=== PATIENT | male | born 1980 | race Caucasian/White ===

== ENCOUNTER 2019-01-02 22:55 | Emergency (ER) | payer SELFPAY ==
[~2019-01-02] VITALS: Ht 182.9 cm; Wt 81.6 kg
[2019-01-02] MEDS ORDERED: TETANUS/DIPHTHERIA TOX ADULT 0.5 ML SYR ONE (23:38)
[2019-01-02] MEDS ORDERED: CLINDAMYCIN PHOS 600 MG/ 4 ML VIAL ONE (23:38)
[2019-01-02] MEDS ORDERED: TETANUS/DIPHTHERIA TOX ADULT 0.5 ML SYR IM ONE (23:45)
[2019-01-02] MEDS ORDERED: CLINDAMYCIN PHOS 600 MG/ 4 ML VIAL IM ONE (23:45)
== END 2019-01-03 00:33 | disposition home or self-care (01) ==
LOC: FSED 22:55
DX: R21 Rash and other nonspecific skin eruption (principal); L03.116 Cellulitis of left lower limb; S80.862A Insect bite (nonvenomous), left lower leg, initial encounter
CPT/HCPCS: 90471; 90714; 99283

== ENCOUNTER 2019-01-04 22:22 | Inpatient (IN) | payer SELFPAY ==
[~2019-01-04] VITALS: Ht 181.6 cm; Wt 78.5 kg
--- OUTSIDE RECORDS SUMMARY | 2019-01-04 22:24 | XMS REPORT | Clinical Summary ---
Author Author [facility] Organization [facility] Address Unknown Phone Unavailable Care Team Providers Care Lamp Decorator Name Role Phone Rhonda Gaston MD PCP Allergies No Known Allergies Medications No known medications Active Problems Problem Noted Date Abscess of hand 01/07/2016 Abscess of right hand 01/04/2016 Cellulitis and abscess of hand 01/04/2016 IV drug abuse 01/04/2016 Tobacco dependence 01/04/2016 Social History Date Tobacco Use Types Packs/Day Years Used Current Every Day Smoker Cigarettes 0.5 10 Smokeless Tobacco: Current User Tobacco Cessation: Ready to Quit: No; Counseling Given: Yes Alcohol Use Drinks/Week oz/Week Comments No Sex Assigned at Date Recorded Not on file Industry Job Start Date Occupation Not on file Not on file Not on file Travel End Travel History Travel Start No recent travel history available. Last Filed Vital Signs Not on file Plan of Treatment Health Maintenance Due Date Last Done Comments INFLUENZA VACCINE 02/14/2019 Results Not on fileafter 01/03/2018 Advance Directives Patient has advance care planning documents on file. For more information, elliot man contact: Khurram Bansal [address] [place] [address]
--- OUTSIDE RECORDS SUMMARY | 2019-01-04 22:24 | XMS REPORT ---
Author Author [facility] Address Unknown Phone Unavailable Care Team Providers Care Ramp Agent Name Role Phone Unavailable Unavailable Problems This patient has no known problems. Allergies, Adverse Reactions, Alerts This patient has no known allergies or adverse reactions. Medications This patient has no known medications. Encounters Start Date/Time End Date/Time Encounter Type Admission Type Attending [facility] Facility Care Department Encounter ID 2016-04-14 00:00:00 2017-01-31 00:00:00 Outpatient [facility] [id number]
[2019-01-04] MEDS ORDERED: MORPHINE SULFATE INJ 4 MG/ML INJ 1ML IV STA (22:34)
[2019-01-04] MEDS ORDERED: VANCOMYCIN 1GM/NS 250 ML 250 ML IV ONE (22:45)
[2019-01-04] MEDS ORDERED: ONDANSETRON HCL INJ 2MG/ML 2ML 2 MG/ML VIAL IV PRN (23:00)
[2019-01-04] MEDS ORDERED: VANCOMYCIN 1GM/NS 250 ML 250 ML IV SCH (23:00)
--- OUTSIDE RECORDS SUMMARY | 2019-01-04 23:19 | XMS REPORT | Clinical Summary ---
Author Author [facility] Organization [facility] Address Unknown Phone Unavailable Care Team Providers Care Water Carter Name Role Phone Rhonda Gaston MD PCP [...] more information, elliot man contact: Khurram Bansal [address] [place] [address]
--- NOTE | 2019-01-04 23:30 | NUR ---
called [facility] for transport
[2019-01-05] VITALS (9 sets, daily range): BP systolic 114–140; BP diastolic 72–93
--- NOTE | 2019-01-05 01:00 | NUR ---
RECEIVED REPORT FROM [facility] NURSE. PATIENT ARRIVED VIA STRETCHER. PATIENT'S GIRLFRIEND ACCOMPANIED PATIENT. CALL LIGHT WITHIN REACH. PATIENT IN BED.
[2019-01-05] MEDS: HYDROMORPHONE 2MG/ML 2 MG/ML ML IV PRN ×5 (01:34→21:25)
[2019-01-05] MEDS ORDERED: SODIUM CHLORIDE 0.9% 250ML 250 ML ONE (02:28)
[2019-01-05] MEDS ORDERED: MORPHINE SULFATE INJ 4 MG/ML INJ 1ML IV PRN (03:00)
--- NOTE | 2019-01-05 06:56 | NUR ---
Gave report to oncoming nurse. Patient in bed. Call light within reach.
[2019-01-05 07:17] LABS: BASOPHILS % 0.2 % (0.0-1.0); EOSINOPHILS # (AUTO) 0.3 (0.0-0.4); EOSINOPHILS % 2.5 % (0.0-6.0); HEMATOCRIT 34.8 % (38.2-49.6); HEMOGLOBIN 11.1 g/dL (14.0-18.0); LYMPHOCYTES # (AUTO) 0.7 (1.0-3.2); LYMPHOCYTES % 5.5 % (18.0-39.1); MEAN CORPUSCULAR HEMOGLOBIN 29.1 pg (28-32); MEAN CORPUSCULAR HGB CONC 31.9 g/dL (31-35); MEAN CORPUSCULAR VOLUME 91.3 fL (81-99); MONOCYTES % 7.5 % (4.4-11.3); NEUTROPHILS # (AUTO) 11.3 (2.1-6.9); NEUTROPHILS % 83.7 % (38.7-80.0); PLATELET COUNT 227 x10e3/uL (140-360); RED BLOOD COUNT 3.81 x10e6/uL (4.3-5.7); RED CELL DISTRIBUTION WIDTH 13.8 % (11.7-14.4)
[2019-01-05 07:38] LABS: ANION GAP 12.8 mmol/L (8-16); BLOOD UREA NITROGEN 11 mg/dL (7-26); BUN/CREATININE RATIO 13 (6-25); CALCIUM 8.9 mg/dL (8.4-10.2); CARBON DIOXIDE 27 mmol/L (22-29); CHLORIDE 100 mmol/L (98-107); CREATININE, SERUM 0.82 mg/dL (0.72-1.25); EST GLOMERULAR FILTRATION RATE > 60 ML/MIN (60-); GLUCOSE 127 mg/dL (74-118); POTASSIUM 3.8 mmol/L (3.5-5.1); SODIUM 136 mmol/L (136-145)
[2019-01-05] MEDS ORDERED: ACETAMINOPHEN 325 MG TAB PO PRN (08:00)
--- NOTE | 2019-01-05 08:30 | NUR ---
Pt received resting in bed. Alert and oriented x4 with wound/scab to left knee, and left leg is swollen, red, and warm to touch. Oriented to staff and surroundings. Encouraged to press call ferro if help needed. Pt verbalized understanding of teaching. Will monitor
[2019-01-05] MEDS ORDERED: ONDANSETRON HCL 4 MG ORAL DISINTEGRATING TAB PO PRN (10:30)
[2019-01-05] MEDS ORDERED: VANCOMYCIN 1GM/NS 250 ML 250 ML IV SCH (11:00)
[2019-01-05] MEDS ORDERED: HYDROCODONE/APAP 5MG-325MG TAB PO ONE (12:00)
[2019-01-05] MEDS ORDERED: HYDROCODONE/APAP 10MG-325MG TAB PO PRN (15:30)
[2019-01-05] MEDS ORDERED: HYDRALAZINE HCL 20 MG/ML VIAL IV PRN (16:00)
[2019-01-05] MEDS ORDERED: HYDROCODONE/APAP 5MG-325MG TAB PO PRN (16:15)
[2019-01-05] MEDS ORDERED: METOPROLOL TARTRATE INJ 1 MG/ML VIAL IV PRN (16:15)
[2019-01-05] MEDS ORDERED: FUROSEMIDE INJ 10 MG/ML 2 ML VIAL IV ONE (17:00)
[2019-01-05] MEDS: PIPER-TAZ 3.375 GM 50 ML IV SCH ×2 (17:20→23:27)
[2019-01-05] MEDS: FAMOTIDINE 20 MG TAB PO SCH (17:20)
--- NOTE | 2019-01-05 17:45 | NUR ---
Nutrition Screen Note RD Recommendation for Physician: Continue diet as ordered Plan of Care: RD following, monitoring for tolerance and adequacy Nutrition reason for involvement: Nutrition Risk Trigger Primary Diagnose(s): Cellulitis left lower extremity PMH: No H&P in chart Ht: 71.5 in Wt:173 lb BMI: 23 kg/m2 IBW:[address] Assessment: (01/05) Chart reviewed. Labs and meds reviewed. 38 y/o M admitted for cellulitis of left lower extremity. Patient reports some mild weight loss over past two weeks (did not specify), noted could be due to change in work enviornment. Per patient has good appetite and intake. Denies any N/V/D or difficulties with chewing or swallowing. No complaints at this time. Will continue to monitor and follow. Current Diet: Regular Diet Malnutrition Evaluation (01/05) The patient does not meet criteria for a specified degree of malnutrition at this time. Will re-evaluate at follow-up as appropriate. Diet Education Needs Assessment: Diet education not indicated. Nutrition Care Level: LOW Signed: Kerry El, MS, RD, LD
[2019-01-05] MEDS: LORAZEPAM INJ 2 MG/ML VIAL IV PRN (17:58)
--- NOTE | 2019-01-05 19:07 | NUR ---
Received report from previous nurse. Call light within reach. Patient in bed. Friend at bedside.
[2019-01-05] MEDS ORDERED: ACETAMINOPHEN/CODEINE 300MG - 30MG TAB PO PRN (20:15)
--- NOTE | 2019-01-05 20:15 | NUR ---
Called Dr. Fallon office and talked to BEBO Fung about patient upset and wanting something for pain. Kenton ordered Glendale 10 mg q6h prn for 4-6 pain, Dilaudid 0.5 mg q6h prn for 7-10 pain, and Tylenol #3 q4h PRN for 1-3 pain.
--- NOTE | 2019-01-05 22:20 | NUR ---
Patient asked for something for sleep. Called and talked to BEBO Fung from Dr. Fallon office. Kenton ordered Restoril 15 mg qHS, PRN for insomnia.
[2019-01-05] MEDS ORDERED: TEMAZEPAM 15 MG CAP PO PRN (22:30)
[2019-01-06] VITALS (7 sets, daily range): BP systolic 117–157; BP diastolic 70–86
[2019-01-06] MEDS: LORAZEPAM INJ 2 MG/ML VIAL IV PRN ×3 (01:03→17:10)
[2019-01-06] MEDS: HYDROCODONE/APAP 10MG-325MG TAB PO PRN ×3 (01:07→16:52)
[2019-01-06 03:37] LABS: BASOPHILS # (AUTO) 0.1 (0.0-0.1); BASOPHILS % 0.3 % (0.0-1.0); EOSINOPHILS # (AUTO) 0.2 (0.0-0.4); HEMOGLOBIN 11.6 g/dL (14.0-18.0); LYMPHOCYTES # (AUTO) 1.5 (1.0-3.2); LYMPHOCYTES % 8.3 % (18.0-39.1); MEAN CORPUSCULAR HEMOGLOBIN 29.6 pg (28-32); MEAN CORPUSCULAR HGB CONC 34.1 g/dL (31-35); MEAN CORPUSCULAR VOLUME 86.7 fL (81-99); MONOCYTES # (AUTO) 1.4 (0.2-0.8); NEUTROPHILS # (AUTO) 14.2 (2.1-6.9); NEUTROPHILS % 81.8 % (38.7-80.0); PLATELET COUNT 259 x10e3/uL (140-360); RED BLOOD COUNT 3.92 x10e6/uL (4.3-5.7); RED CELL DISTRIBUTION WIDTH 13.9 % (11.7-14.4)
[2019-01-06] MEDS: HYDROMORPHONE 2MG/ML 2 MG/ML ML IV PRN (03:49)
[2019-01-06 03:58] LABS: ANION GAP 13.8 mmol/L (8-16); BLOOD UREA NITROGEN 11 mg/dL (7-26); BUN/CREATININE RATIO 13 (6-25); CALCIUM 9.1 mg/dL (8.4-10.2); CARBON DIOXIDE 27 mmol/L (22-29); CHLORIDE 99 mmol/L (98-107); CREATININE, SERUM 0.85 mg/dL (0.72-1.25); EST GLOMERULAR FILTRATION RATE > 60 ML/MIN (60-); GLUCOSE 118 mg/dL (74-118); POTASSIUM 3.8 mmol/L (3.5-5.1); SODIUM 136 mmol/L (136-145)
[2019-01-06 04:11] LABS: ERYTHROCYTE SEDIMENTATION RATE 70 mm/hr (0-13)
[2019-01-06 04:32] LABS: FREE T4 (FREE THYROXINE) 0.98 ng/dL (0.8-1.8); THYROID STIMULATING HORMONE 1.267 uIU/mL (0.350-4.940)
[2019-01-06] MEDS: PIPER-TAZ 3.375 GM 50 ML IV SCH ×3 (05:46→16:52)
--- NOTE | 2019-01-06 07:05 | NUR ---
Gave report to oncoming nurse. Patient asleep in bed. Call light within reach. STAFFING OPERATIONS MANAGER Xiomara mentioned to not call to give IV pain medication and she discontinued IV pain medication
--- NOTE | 2019-01-06 07:10 | NUR ---
Pt received resting in bed. Xiomara ARMED CUSTOM PROTECTION OFFICER attempted to access pt, but pt would not respond to ARMED CUSTOM PROTECTION OFFICER. Breathing unlabored, vitals stable. Will monitor
--- NOTE | 2019-01-06 07:44 | Diagnostic Imaging Report ---
MRI knee, preliminary report: Clinical history: Cellulitis left lower extremity Comparison: None. Impression: Exam limited by motion artifact. 1. Diffuse subcutaneous soft tissue edema, worse in the anterior and lateral aspect left lower extremity extending from the distal femur through the level of the proximal tibia-fibula. No well-defined fluid collections are identified. 2. No acute bony abnormalities. 3. Linear high signal posterior aspect of the medial meniscus may represent a small tear.
--- NOTE | 2019-01-06 08:20 | NUR ---
Pt refusing Venous duplex. Explained to pt the disadvantages of refusing test, but pt requesting for more pain meds. Will follow up
[2019-01-06] MEDS: FAMOTIDINE 20 MG TAB PO SCH ×2 (08:25→16:52)
--- NOTE | 2019-01-06 08:25 | NUR ---
Pt received resting in bed. Meds given as ordered. Call ferro within reach. Spivey given as ordered. Will monitor
[2019-01-06] MEDS ORDERED: VANCOMYCIN 1GM/NS 250 ML 250 ML IV SCH (09:00)
--- NOTE | 2019-01-06 09:30 | NUR ---
Noted left leg blister oozing yellowing fluid. Encouraged pt to keep site clean. CHICKEN DRESSER aware. Will monitor
[2019-01-06] MEDS: KETOROLAC TROMETHAMINE 30 MG/ML VIAL IV PRN ×2 (10:06→17:52)
--- NOTE | 2019-01-06 10:30 | NUR ---
Pt wants venous duplex done. Informed US tech. Will monitor
--- NOTE | 2019-01-06 10:50 | NUR ---
Venous duplex negative
--- NOTE | 2019-01-06 17:10 | NUR ---
Pt requesting for "stronger pain medication". Called Xiomara LAGUNAS who stated that the pt cannot get anymore pain meds. Order placed to not call for additional meds. Charge nurse & Stripping And Booking Machine Operator aware
--- NOTE | 2019-01-06 18:44 | NUR ---
chemical engineering technician replacing leads, and pt's mother at bedside. As per telephone cleaner, pt's mother stated that she could bring something for pt to knock him out. She advised pt's mother not to bring him anything. Charge nurse & railroad car cleaning supervisor made aware. BRIM STIFFENER made aware. Will monitor
--- NOTE | 2019-01-06 19:05 | NUR ---
Patient visited in room during nursing rounds. Patient alert and oriented x 3. Multiple tattoos all over body especially on upper and lower extremities. Left leg (below left knee) with quarter size wound (draining minimal pus) and uncovered at this time (or room air). Pt ambulatory in room prn. Pt aware SERVER SOFTWARE ENGINEER (Xiomara Dugan) refuse to order more IV pain medication at this time. Call ferro within reach.
--- NOTE | 2019-01-06 22:10 | NUR ---
Patient and patient's girlfriend called the station informing patient about to leave against medical advice. Nurse (Antonio) spoke with patient explaining the pros of staying in the hospital versus leaving the hospital against medical advice. Informed patient that I will attempt to call Xiomara Dugan (PRODUCTION STATISTICAL CLERK) to inform of the situation. Patient requesting for stronger IV pain medication like Dilaudid. Patient stated he will wait for Xiomara's response.
--- NOTE | 2019-01-06 22:13 | NUR ---
Called Xiomara Dugan and informed of patient condition and situation. Xiomara still adamant she will not order any other IV pain medication other than the current prn IV pain med (Toradol 15mg). Xiomara informed pt threatening to leave against medical advice (AMA) tonight. Xiomara stated patient can leave AMA tonight if he wants to but if patient stays, she would see him (patient) tomorrow morning.
--- NOTE | 2019-01-06 22:18 | NUR ---
Informed patient that Xiomara was called and that no pain medication ordered and that Xiomara aware he plans to leave AMA. Pt requested to be left alone in room for a few minutes to say a prayer.
--- NOTE | 2019-01-06 22:30 | NUR ---
Patient decided he wanted to leave AMA and signed AMA paper. IV on right forearm (20 gauge) taken out per protocol. Tele box removed as well and was to be returned to tele office.
--- NOTE | 2019-01-06 22:55 | NUR ---
Patient left unit in his own clothes. Patient ambulating in stable condition. Patient instructed where to go when leaving the hospital. Patient stated he was ok to leave and really wanted to leave. Charge nurse (Reema) aware and Marble Cutter Operator (Jessica) aware of pt leaving AMA.
== END 2019-01-06 22:56 | disposition left against medical advice (07) | DRG 603 ==
LOC: FSED 22:22 → ERHOLD 22:58 → MED/SURG3 01-05 00:51
PROVIDERS: ADMIT Internal Medicine; ATTEND Internal Medicine
DX: L03.116 Cellulitis of left lower limb (principal); F90.9 Attention-deficit hyperactivity disorder, unspecified type; F17.200 Nicotine dependence, unspecified, uncomplicated; R00.0 Tachycardia, unspecified; Z83.3 Family history of diabetes mellitus; Z82.49 Family history of ischemic heart disease and other diseases of the circulatory system; Z80.9 Family history of malignant neoplasm, unspecified; Z82.3 Family history of stroke
CPT/HCPCS: 36415; 80048; 80053; 83880; 84439; 84443; 85025; 85651; 86140; 87040; 87071; 87186; 87205; 93971; 99283; J1885; J1940; J2060; J2270; J2405; J2543; J3370; J7050